=== PATIENT | female | born 1955 | race Caucasian/White ===

== ENCOUNTER → 2016-10-16 | Outpatient (REF) | payer BC ==
[2016-10-16 15:09] LABS: BASO % 0.4 % (0.0-1.0); LARGE UNSTAINED CELL # 0.1 K/mm3 (0.0-0.4); LARGE UNSTAINED CELL % 2.2 % (0.0-4.0); LYMPH # 1.3 K/mm3 (1.5-4.5); LYMPH % 24.8 % (24.0-44.0); MEAN CORPUSCULAR HEMOGLOBIN 32.6 pg (27.0-33.0); MEAN CORPUSCULAR HGB CONC 33.6 g/dl (32.0-36.5); MEAN CORPUSCULAR VOLUME 96.9 fl (80.0-96.0); MONO # 0.2 K/mm3 (0.0-0.8); MONO % 4.2 % (0.0-5.0); NEUTROPHILS # 3.6 K/mm3 (1.8-7.7); NEUTROPHILS % 67.3 % (36.0-66.0); PLATELET COUNT, AUTOMATED 194 k/mm3 (150-450); RED CELL DISTRIBUTION WIDTH 12.1 % (11.5-14.5); WHITE BLOOD COUNT 5.3 K/mm3 (4.0-10.0)
[2016-10-16 15:18] LABS: ANION GAP 6 MEQ/L (8-16); BLOOD UREA NITROGEN 17 MG/DL (7-18); CALCIUM LEVEL 9.2 MG/DL (8.5-10.1); CARBON DIOXIDE LEVEL 31 MEQ/L (21-32); CHLORIDE LEVEL 103 MEQ/L (98-107); CHOLESTEROL LEVEL 227 MG/DL (<200); CREATININE FOR GFR 0.89 MG/DL (0.55-1.02); GLOMERULAR FILTRATION RATE > 60.0 (>51); GLUCOSE, FASTING 141 MG/DL (70-105); POTASSIUM SERUM 4.2 MEQ/L (3.5-5.1); SODIUM LEVEL 140 MEQ/L (136-145); TRIGLYCERIDES LEVEL 71 MG/DL (<150)
[2016-10-16 15:55] LABS: CA 125 13.2 U/ML (<30.2)
== END ==
LOC: M LAB REF 14:54
PROVIDERS: ATTEND Internal Medicine
DX: Z00.00 Encounter for general adult medical examination without abnormal findings (principal); R53.83 Other fatigue; C56.9 Malignant neoplasm of unspecified ovary

== ENCOUNTER → 2017-03-27 | Outpatient (REF) | payer BC | LOC: M LAB REF 17:07 | PROVIDERS: ATTEND Internal Medicine | DX: R53.81 Other malaise (principal) ==

== ENCOUNTER 2017-07-04 19:52 | Emergency (ER) | payer OTHER, BC, SELFPAY ==
[2017-07-04 20:36] LABS: MEAN CORPUSCULAR HEMOGLOBIN 32.5 pg (27.0-33.0); MEAN CORPUSCULAR HGB CONC 34.4 g/dl (32.0-36.5); MEAN CORPUSCULAR VOLUME 94.4 fl (80.0-96.0); PLATELET COUNT, AUTOMATED 249 10^3/uL (150-450); RED CELL DISTRIBUTION WIDTH 11.8 % (11.5-14.5); WHITE BLOOD COUNT 6.1 10^3/uL (4.0-10.0)
[2017-07-04] MEDS: ONDANSETRON 4MG/2ML VIAL (J2405) IV (21:18)
[2017-07-04] MEDS: MORPHINE 4 MG/ML 1ML SYRINGE IV (21:19)
[2017-07-04] MEDS ORDERED: LIDOCAINE W/EPINEPHRINE 1% 20ML VIAL As Ordered (21:21)
[2017-07-05] MEDS: NORCO 5/325MG TABLET (BULK FOR ED) PO (00:28)
== END 2017-07-05 00:39 | disposition home or self-care (01) ==
LOC: M ED 07-05 00:39
DX: S01.511A Laceration without foreign body of lip, initial encounter (principal); S00.83XA Contusion of other part of head, initial encounter; V49.49XA Driver injured in collision with other motor vehicles in traffic accident, initial encounter; Y92.481 Parking lot as the place of occurrence of the external cause; Y93.89 Activity, other specified; Y99.8 Other external cause status; Z85.43 Personal history of malignant neoplasm of ovary; Z79.890 Hormone replacement therapy; Z79.82 Long term (current) use of aspirin; Z88.1 Allergy status to other antibiotic agents; Z88.2 Allergy status to sulfonamides
CPT/HCPCS: J2405

== ENCOUNTER → 2018-05-14 | Outpatient (REF) | payer OTHER, BC ==
[2018-05-16 11:21] LABS: CA 125 12.2 U/ML (<30.2)
== END ==
LOC: M LAB REF 17:30
DX: C56.9 Malignant neoplasm of unspecified ovary (principal)

== ENCOUNTER → 2018-11-19 | Outpatient (REF) | payer BC ==
[~2018-11-19] MED LIST: ASPI81TA26 PO; HYDR-3715 PO; LEVO100T5 PO; OCUVTAB PO; VITA100066 PO
== END ==
LOC: M LAB REF 12:27
PROVIDERS: ATTEND Internal Medicine
DX: C56.9 Malignant neoplasm of unspecified ovary (principal)

== ENCOUNTER → 2019-08-28 | Outpatient (REF) | payer BC ==
[~2019-08-28] MED LIST changes: +NITR-67 PO
== END ==
LOC: M LAB REF 16:19
PROVIDERS: ATTEND Nurse Practitioner Family
DX: N39.0 Urinary tract infection, site not specified (principal)

== ENCOUNTER → 2019-09-30 | Outpatient (REF) | payer BC, OTHER ==
[2019-09-30 13:17] LABS: BACTERIA, URINE SMALL AMOUNT; HYALINE CAST, URINE NONE SEEN /lpf (0-1); RBC, URINE NONE SEEN /hpf (0-3); SQUAMOUS EPITHELIAL CELL URINE NONE SEEN /hpf (SMALL AMT); WBC, URINE 0-1 /hpf (0-3)
== END ==
LOC: M LAB REF 12:16
PROVIDERS: ATTEND Internal Medicine
DX: R82.89 Other abnormal findings on cytological and histological examination of urine (principal); N30.20 Other chronic cystitis without hematuria; N39.3 Stress incontinence (female) (male)

== ENCOUNTER → 2019-11-04 | Outpatient (CLI) | payer BC ==
[~2019-11-04] MED LIST changes: +GASTROGRAFIN SOLUTION 30ML (Q9963) As Ordered ONE; +ISOVUE-370 76% 100ML VIAL As Ordered ONE
--- NOTE | 2019-11-04 11:25 | REP ---
CT ABDOMEN AND PELVIS WITHOUT AND WITH IV CONTRAST: CT urogram protocol used. HISTORY: Recurrent urinary tract infection. History of ovarian carcinoma. Comparison is made with prior CT studies from October 17, 2016 and remote prior studies from [address] CONTRAST DOSE: 100 mL of intravenous Isovue 370. CT FINDINGS: Digital preliminary test designer radiograph demonstrates a minimal levoconvex curve of the lumbar spine. Bowel gas pattern is normal. The lung bases are clear on axial CT images. The liver and the spleen are normal in size and homogeneous in texture. There is a tiny accessory splenule. No abnormality is noted in the gallbladder or in the pancreas. There is severe right-sided unilateral hydronephrosis and severe cortical atrophy affecting the right kidney again noted unchanged from multiple prior studies. Mild to moderate right-sided hydroureter is seen. No obstructing mass lesion is visible. The nodular density seen involving the distal ureter on the right on remote prior CT studies is not visible today. No bladder mass is appreciated. There is no evidence of pelvic or abdominal ascites. The uterus is surgically absent. A normal appendix is seen in the right lower quadrant. The left kidney shows no evidence of hydronephrosis. There is a small cyst in the upper pole of the left kidney cortex measuring 9 mm in greatest diameter. No urinary tract calculus is apparent. There is no evidence of retroperitoneal mass or adenopathy. Normal caliber aorta. Small and large intestinal bowel loops are unremarkable. No abdominal wall defect is seen. Bone window settings show no evidence of bony destructive lesion. There are mild degenerative facet changes in the lower lumbar spine. Delayed scanning shows no evidence of filling defect in the collecting system on the left. The hydronephrotic right collecting system is not opacified. There is a thin rim of enhancing cortex remaining in the right kidney. IMPRESSION: Severe hydronephrosis and marked cortical atrophy affecting the right kidney unchanged from multiple prior studies. No abdominal or pelvic mass, adenopathy, or ascites seen. No bladder lesion is observed. No urinary calculus disease is seen. Electronically Signed by Abhijeet Lawson MD 11/04/2019 11:52 A
== END ==
LOC: M RAD 07:08
PROVIDERS: ATTEND Internal Medicine
DX: N30.20 Other chronic cystitis without hematuria (principal); C56.9 Malignant neoplasm of unspecified ovary; N13.30 Unspecified hydronephrosis; N28.1 Cyst of kidney, acquired; M51.36 Other intervertebral disc degeneration, lumbar region; N26.1 Atrophy of kidney (terminal)
CPT/HCPCS: 74178; Q9963; Q9967

== ENCOUNTER → 2019-11-10 | Outpatient (REF) | payer BC, OTHER ==
[~2019-11-10] MED LIST changes: -GASTROGRAFIN SOLUTION 30ML (Q9963) As Ordered ONE; -ISOVUE-370 76% 100ML VIAL As Ordered ONE
[2019-11-10 18:39] LABS: RBC, URINE NONE SEEN /hpf (0-3); SQUAMOUS EPITHELIAL CELL URINE NONE SEEN /hpf (SMALL AMT); WBC, URINE NONE SEEN /hpf (0-3)
[2019-11-10 18:40] LABS: BACTERIA, URINE NONE SEEN; HYALINE CAST, URINE NONE SEEN /lpf (0-1)
== END ==
LOC: M LAB REF 18:02
PROVIDERS: ATTEND Internal Medicine
DX: R82.89 Other abnormal findings on cytological and histological examination of urine (principal); Z85.43 Personal history of malignant neoplasm of ovary

== ENCOUNTER → 2020-03-01 | Outpatient (REF) | payer BC, OTHER ==
[2020-03-01 15:36] LABS: APPEARANCE, URINE TURBID (CLEAR); BACTERIA, URINE AUTO NEGATIVE (NEGATIVE); BILIRUBIN, URINE AUTO NEGATIVE (NEGATIVE); BLOOD, URINE BLOOD 3+ (NEGATIVE); COLOR, URINE AMBER (YELLOW); GLUCOSE, URINE (UA) AUTO NEGATIVE (NEGATIVE); KETONE, URINE AUTO TRACE mg/dL (NEGATIVE); LEUKOCYTE ESTERASE, URINE AUTO 2+ (NEGATIVE); NITRITE, URINE AUTO POSITIVE (NEGATIVE); PROTEIN, URINE AUTO 2+ mg/dL (NEGATIVE); RBC, URINE AUTO TNTC /HPF (0-3); SPECIFIC GRAVITY URINE AUTO 1.018 (1.002-1.035); SQUAMOUS EPITHELIAL CELL UR AU 0 /HPF (0-6); UROBILINOGEN, URINE AUTO 0.2 mg/dL (0.0-2.0); WBC, URINE AUTO TNTC /HPF (0-3)
== END ==
LOC: M LAB REF 09:00
PROVIDERS: ATTEND Nurse Practitioner Family
DX: N39.0 Urinary tract infection, site not specified (principal)